=== PATIENT | male | born 1995 | race Two or more races ===

== ENCOUNTER 2022-10-19 19:08 | Emergency (ER) | payer SELFPAY ==
[~2022-10-19] VITALS: Ht 175.3 cm; Wt 130.0 kg
[2022-10-19 22:28] VITALS: BP 135/85
[2022-10-19] MEDS ORDERED: IBUPROFEN 800 MG TAB PO ONE (23:00)
== END 2022-10-19 23:57 | disposition home or self-care (01) ==
LOC: ER 19:08 → EDBD 19:08 → ER 23:56
DX: S13.9XXA Sprain of joints and ligaments of unspecified parts of neck, initial encounter (principal); R07.81 Pleurodynia; M25.552 Pain in left hip; V89.2XXA Person injured in unspecified motor-vehicle accident, traffic, initial encounter; Y93.89 Activity, other specified; Y92.89 Other specified places as the place of occurrence of the external cause; Y99.8 Other external cause status